=== PATIENT | male | born 1980 | race Caucasian/White ===

== ENCOUNTER 2016-12-21 02:21 | Emergency (ER) | payer MEDICAID ==
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
== END 2016-12-21 02:59 | disposition home or self-care (01) ==
PROC: 0HQ1XZZ Repair Face Skin, External Approach (ICD-10-PCS; principal; 2016-12-21)
DX: S01.81XA Laceration without foreign body of other part of head, initial encounter (principal); F17.200 Nicotine dependence, unspecified, uncomplicated; F10.120 Alcohol abuse with intoxication, uncomplicated; W18.39XA Other fall on same level, initial encounter; Y93.02 Activity, running

== ENCOUNTER 2017-07-01 14:13 | Emergency (ER) | payer MEDICAID ==
[2017-07-01 14:21] VITALS: RESP 16
[2017-07-01] MEDS ORDERED: THIAMINE HCL 500 MG in NS 100 ML IV ONE (14:23)
[2017-07-01] MEDS ORDERED: NS 1,000 ML IV ONE (14:23)
[2017-07-01] MEDS ORDERED: FOLIC ACID 1 MG TAB PO ONE (14:24)
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
[2017-07-01 15:45] LABS: ETHANOL SERUM 413 mg/dL (0-10)
[2017-07-01] MEDS ORDERED: CHLORDIAZEPOXIDE 25MG PREPK#6 BTL TAKEHOME ONE (19:14)
[2017-07-01 19:48] VITALS: BP 123/75; PULSE 89; O2SAT 93
== END 2017-07-01 20:00 | disposition home or self-care (01) ==
LOC: EDUNIT#
DX: F10.929 Alcohol use, unspecified with intoxication, unspecified (principal); F17.200 Nicotine dependence, unspecified, uncomplicated; E86.9 Volume depletion, unspecified
CPT/HCPCS: 82947-QW; 96365; G0480; J3411

== ENCOUNTER 2017-07-04 16:34 | Emergency (ER) | payer MEDICAID ==
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
[2017-07-04 16:50] VITALS: BP 150/95; PULSE 108; RESP 16; TEMP 99; O2SAT 91
== END 2017-07-04 16:59 | disposition home or self-care (01) ==
DX: F10.929 Alcohol use, unspecified with intoxication, unspecified (principal); F17.200 Nicotine dependence, unspecified, uncomplicated

== ENCOUNTER 2017-07-04 20:23 | Emergency (ER) | payer MEDICAID ==
[2017-07-04 20:31] VITALS: O2SAT 92
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
[2017-07-05 01:23] VITALS: BP 141/66; PULSE 74; RESP 165; TEMP 97.9
== END 2017-07-05 01:23 | disposition home or self-care (01) ==
DX: F10.129 Alcohol abuse with intoxication, unspecified (principal); F17.200 Nicotine dependence, unspecified, uncomplicated

== ENCOUNTER 2017-07-07 10:05 | Emergency (ER) | payer MEDICAID ==
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
[2017-07-07 12:37] VITALS: BP 128/67; PULSE 82; RESP 18; TEMP 98.6; O2SAT 95
== END 2017-07-07 12:52 | disposition home or self-care (01) ==
LOC: EDUNIT#
DX: F10.920 Alcohol use, unspecified with intoxication, uncomplicated (principal); F17.200 Nicotine dependence, unspecified, uncomplicated

== ENCOUNTER 2017-07-07 22:46 | Emergency (ER) | payer MEDICAID ==
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
[2017-07-07 22:56] VITALS: RESP 16
[2017-07-07] MEDS ORDERED: OLANZapine DISINTEGR 10 MG TAB PO ONE (23:14)
[2017-07-08 06:49] VITALS: BP 120/65; PULSE 80; TEMP 98.1; O2SAT 96
== END 2017-07-08 07:36 | disposition home or self-care (01) ==
LOC: EDUNIT#
DX: F10.921 Alcohol use, unspecified with intoxication delirium (principal); F17.200 Nicotine dependence, unspecified, uncomplicated

== ENCOUNTER 2017-07-08 11:47 | Emergency (ER) | payer MEDICAID ==
[2017-07-08 12:24] VITALS: BP 136/80; PULSE 100; RESP 18; TEMP 97.2; O2SAT 97
--- NOTE | 2017-07-08 12:30 | EDPHY ---
H & P Smoking Status: Current every day smoker Time Seen by Provider: 07/08/17 12:23 HPI/ROS: CHIEF COMPLAINT: Suspected alcohol use no complaints HISTORY OF PRESENT ILLNESS: 37-year-old male brought in by EMS not on are cold after he smelled alcohol and admits to drinking Listerine while he was at [facility]. No complaints of pain or discomfort. No chest pain. No back pain. No abdominal pain. REVIEW OF SYSTEMS: A ten point review of systems was performed and is negative with the exception of the items mentioned in the HPI PAST MEDICAL & SURGICAL HISTORY: No pertinent medical or surgical history SOCIAL HISTORY: homeless. Admits to drinking Listerine PHYSICAL EXAM (Prior to examination, patient consented to physical exam, hands were washed and my usual and customary physical exam procedures followed) 1) GENERAL: Well-developed, well-nourished, alert and oriented. Appears to be in no acute distress. Answering questions appropriately. Eating a meal. 2) HEAD: Normocephalic, atraumatic 3) HEENT: Pupils equal, round, reactive to light bilaterally. Sclera anicteric. No raccoon eyes no Mendez sign. 4) NECK: Full range of motion, no meningeal signs. 5) LUNGS: Clear auscultation bilaterally, no wheezes, no rhonchi, no retractions. 6) HEART: Regular rate and rhythm, no murmur, no heave, no gallop. 7) ABDOMEN: No guarding, no rebound, no focal tendernessn, 8) MUSCULOSKELETAL: No peripheral edema or discoloration. 9) BACK: no visual or palpable abnormality. 10) SKIN: No rash, no petechiae. 11) Psychiatric: Patient is oriented X 3, there is no agitation. DIFFERENTIAL DIAGNOSIS: In no particular order including but not limited to hypoglycemia, infectious process, electrolyte abnormality, head injury and intoxicants. (Salima Coyle) Constitutional: Initial Vital Signs Temperature (C) 36.2 C 07/08/17 12:14 Heart Rate 100 07/08/17 12:14 Respiratory Rate 18 07/08/17 12:14 Blood Pressure 136/80 H 07/08/17 12:14 O2 Sat (%) 97 07/08/17 12:14 O2 Delivery Mode Room Air Allergies/Adverse Reactions: MSG Allergy (Uncoded 07/07/17 22:53) Home Medications: Medication Instructions Recorded NK [No Known Home Meds] 10/01/16 MDM/Departure - MDM ED Course/Re-evaluation: At 12:29 p.m. the patient is eating a meal, he is talking with clear speech pattern, awake alert oriented to person place time events, stable steady gait. He is clinically sober. Have offered to [facility] which he declines. He will be discharged. Recommend he consider long-term alcohol sobriety (Salima Coyle) The patient was evaluated and managed by the physician certified nursing assistant instructor. I have reviewed this chart and I agree with the findings and plan of care as documented , as indicated by my signature. I am the secondary supervising physician. ( Otilia Brock) - Depart Disposition: Home, Routine, Self-Care Clinical Impression: Alcohol use Condition: Good Instructions: Abuse of Alcohol (ED) Referrals: [facility],. [Clinic] - As per Instructions
== END 2017-07-08 12:56 | disposition home or self-care (01) ==
LOC: EDUNIT#
DX: Z72.89 Other problems related to lifestyle (principal)

== ENCOUNTER 2017-07-09 04:51 | Emergency (ER) | payer MEDICAID ==
[2017-07-09] MEDS ORDERED: NS 1,000 ML IV ONE (05:02)
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
[2017-07-09] MEDS ORDERED: MIDAZOLAM 2 MG/2 ML VIAL ONE (05:03)
[2017-07-09] MEDS ORDERED: MIDAZOLAM 2 MG/2 ML VIAL IVP ONE ×2 (05:03→05:49)
[2017-07-09 05:30] LABS: % IMMATURE GRANULYOCYTES 0.5 % (0.0-1.1); ABSOLUTE IMMATURE GRANULOCYTES 0.03 10^3/uL (0.00-0.10); ADD DIFF? NO; ADD MORPH? NO; ADD SCAN? NO; ATYPICAL LYMPHOCYTE FLAG 60 (0-99); FRAGMENT RBC FLAG 0 (0-99); HEMATOCRIT 47.8 % (40.0-51.0); HEMOGLOBIN 16.4 g/dL (13.7-17.5); LEFT SHIFT FLG 0 (0-99); LIPEMIA HEMOLYSIS FLAG 90 (0-99); MEAN CELL HEMOGLOBIN 33.1 pg (27.9-34.1); MEAN CELL HEMOGLOBIN CONCENTR. 34.3 g/dL (32.4-36.7); MEAN CELL VOLUME 96.4 fL (81.5-99.8); MEAN PLATELET VOLUME 9.6 fL (8.7-11.7); PLATELET CLUMPS FLAG 10 (0-99); PLATELET COUNT 187 10^3/uL (150-400); RED BLOOD CELL COUNT 4.96 10^6/uL (4.40-6.38); RED CELL DISTRIBUTION WIDTH 14.3 % (11.5-15.2)
[2017-07-09 05:42] LABS: ANION GAP 16 mEq/L (8-16); CALCIUM 8.8 mg/dL (8.5-10.4); CARBON DIOXIDE 26 mEq/l (22-31); CHLORIDE 107 mEq/L (97-110); CREATININE 0.9 mg/dL (0.7-1.3); GLOMERULAR FILTRATION RATE > 60; GLUCOSE 80 mg/dL (70-100); POTASSIUM 4.6 mEq/L (3.5-5.2); SODIUM 149 mEq/L (134-144)
[2017-07-09 05:59] LABS: ETHANOL SERUM 467 mg/dL (0-10)
[2017-07-09 08:42] VITALS: BP 129/81; PULSE 83; RESP 16; TEMP 98.2; O2SAT 99
== END 2017-07-09 10:19 | disposition home or self-care (01) ==
LOC: EDUNIT#
DX: F10.920 Alcohol use, unspecified with intoxication, uncomplicated (principal); F17.200 Nicotine dependence, unspecified, uncomplicated
CPT/HCPCS: 80305; 96374; G0480; J2250

== ENCOUNTER 2017-07-09 12:38 | Emergency (ER) | payer MEDICAID ==
[2017-07-09 13:48] LABS: % IMMATURE GRANULYOCYTES 0.5 % (0.0-1.1); ABSOLUTE IMMATURE GRANULOCYTES 0.02 10^3/uL (0.00-0.10); ADD DIFF? NO; ADD MORPH? NO; ADD SCAN? NO; ATYPICAL LYMPHOCYTE FLAG 60 (0-99); FRAGMENT RBC FLAG 0 (0-99); LEFT SHIFT FLG 0 (0-99); LIPEMIA HEMOLYSIS FLAG 90 (0-99); MEAN CELL HEMOGLOBIN 33.3 pg (27.9-34.1); MEAN CELL HEMOGLOBIN CONCENTR. 34.1 g/dL (32.4-36.7); MEAN CELL VOLUME 97.6 fL (81.5-99.8); MEAN PLATELET VOLUME 9.8 fL (8.7-11.7); PLATELET CLUMPS FLAG 10 (0-99); PLATELET COUNT 164 10^3/uL (150-400); RED CELL DISTRIBUTION WIDTH 14.4 % (11.5-15.2)
[2017-07-09 14:02] LABS: ANION GAP 17 mEq/L (8-16); CALCIUM 7.9 mg/dL (8.5-10.4); CARBON DIOXIDE 20 mEq/l (22-31); CHLORIDE 105 mEq/L (97-110); CREATININE 0.8 mg/dL (0.7-1.3); ETHANOL SERUM 249 mg/dL (0-10); GLOMERULAR FILTRATION RATE > 60; GLUCOSE 264 mg/dL (70-100); POTASSIUM 3.9 mEq/L (3.5-5.2); SODIUM 142 mEq/L (134-144)
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
[2017-07-09 15:52] VITALS: O2SAT 94
[2017-07-09 23:37] VITALS: BP 123/72; PULSE 91; RESP 16; TEMP 99.1
== END 2017-07-10 00:50 | disposition home or self-care (01) ==
LOC: EDUNIT#
DX: F10.929 Alcohol use, unspecified with intoxication, unspecified (principal); F17.200 Nicotine dependence, unspecified, uncomplicated
CPT/HCPCS: 80305; G0480

== ENCOUNTER 2017-07-10 12:47 | Emergency (ER) | payer MEDICAID ==
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
[2017-07-10 16:13] VITALS: TEMP 98.6
[2017-07-10 16:22] VITALS: BP 121/79; PULSE 98; RESP 16; O2SAT 92
== END 2017-07-10 16:25 | disposition home or self-care (01) ==
LOC: EDUNIT#
DX: F10.120 Alcohol abuse with intoxication, uncomplicated (principal); F17.200 Nicotine dependence, unspecified, uncomplicated

== ENCOUNTER 2017-07-10 18:15 | Emergency (ER) | payer MEDICAID ==
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
[2017-07-10 18:43] VITALS: BP 142/97; PULSE 62; RESP 18; TEMP 97.5; O2SAT 97
== END 2017-07-10 18:20 | disposition home or self-care (01) ==
DX: F10.129 Alcohol abuse with intoxication, unspecified (principal); F17.200 Nicotine dependence, unspecified, uncomplicated
CPT/HCPCS: 80305; G0480

== ENCOUNTER 2017-12-13 16:00 | Emergency (ER) | payer MEDICAID ==
--- NOTE | 2017-12-13 16:09 | EDPHY ---
H & P Time Seen by Provider: 12/13/17 16:01 HPI/ROS: HPI Alcohol intoxication. 37-year-old male by ambulance. He is on an arc hold placed by aMry CARRENO. Patient found on the street heavily intoxicated, strong odor of alcohol on his breath, unable to walk, yelling at passerby's. No history of trauma. Patient denies any drug use. He admits to drinking at least a 5th of vodka today. No other complaints. ROS: Constitutional: No fever, no chills. As above. Eyes: No discharge. No changes in vision. ENT: No sore throat. No nasal congestion or rhinorrhea. Respiratory: No cough. No shortness of breath. Cardiac: No chest pain, no palpitations. Gastrointestinal: No abdominal pain, no vomiting, no diarrhea. Genitourinary: No hematuria. No dysuria or increased frequency with urination. Musculoskeletal: No back pain. No neck pain. No myalgias or arthralgias. Skin: No rashes. Neurological: No headache. No focal weakness or altered sensation. Past medical history: Alcohol abuse. Social history: Alcohol abuse, homeless, here by himself. Physical Exam: General Appearance: Intoxicated but awake. This patient is responding to questions appropriately albeit with slurred speech. This patient appears generally well-hydrated and well-nourished. Eyes: Pupils equal and round no pallor or injection. No lid edema, erythema or injection. ENT, Mouth: Mucous membranes are moist. The pharyngeal tissues are unremarkable. No edema or swelling. No asymmetry suggestive of abscess. No erythema or exudates. No tongue lacerations or abrasions. Respiratory: There are no retractions, lungs are clear to auscultation with good air movement bilaterally. Cardiovascular: Regular rate and rhythm. No murmur. Gastrointestinal: Abdomen is soft and nontender, no masses, bowel sounds normal. No focal tenderness at McBurney's point. No Perez sign. Neurological: Motor sensory function is grossly intact. Cranial nerves are normal. Skin: Warm and dry, no rashes. Musculoskeletal: Neck is supple and nontender. Extremities are symmetrical. All joints range without pain or impingement. Psychiatric: No agitation. No depression. Database: EKG: Imaging: Procedures: Emergency department course: Vital signs reviewed. Patient placed on a media monitor. Patient will be observed until properly sober for transfer to the [facility]. At 7:40 p.m., the patient is up and ambulatory to the bathroom under their own power and with a normal gait. The patient is responding to questions appropriately and in full sentences. The liabilities of alcohol abuse have been discussed with this patient. This patient has been medically cleared for discharge to the [facility] with Protalex or to home with a sober ride. Followup and return to emergency department precautions discussed. All of the patient's questions were answered. The patient was discharged from emergency department in good condition with Protalex. Differential Diagnosis: The differential diagnosis on this patient includes but is not limited to alcohol intoxication. Traumatic brain injury, other significant traumatic injury, intentional overdose unlikely. This represents a partial list of diagnoses considered. These considerations are based on history, physical exam , past history, reassessment and diagnostic testing. Smoking Status: Current every day smoker Constitutional: Initial Vital Signs Temperature (C) 36.7 C 12/13/17 16:00 Heart Rate 97 12/13/17 16:00 Respiratory Rate 16 12/13/17 16:00 Blood Pressure 106/67 12/13/17 16:00 O2 Sat (%) 93 12/13/17 16:00 O2 Delivery Mode Room Air Allergies/Adverse Reactions: MSG Allergy (Uncoded 07/09/17 12:45) Home Medications: Medication Instructions Recorded NK [No Known Home Meds] 10/01/16 Departure - Departure Disposition: Home, Routine, Self-Care Clinical Impression: Alcohol intoxication Condition: Good Instructions: Abuse of Alcohol (ED) Additional Instructions: Read and follow provided instructions. Follow-up with your primary care physician in 1-2 days for re-evaluation and discussion of detox options. Do not drink alcohol. Return to the emergency department for worsening symptoms or other serious concerns. Referrals: Patient,NotPresent [Unknown] - As per Instructions [facility] 24 Hours [Outside] - As per Instructions
[2017-12-13 17:17] VITALS: TEMP 98.1
[2017-12-13 18:01] VITALS: O2SAT 95
[2017-12-13 20:58] VITALS: BP 118/67; PULSE 105; RESP 20
== END 2017-12-13 20:58 | disposition home or self-care (01) ==
LOC: EDUNIT#
DX: F10.129 Alcohol abuse with intoxication, unspecified (principal); F17.200 Nicotine dependence, unspecified, uncomplicated

== ENCOUNTER 2017-12-21 15:28 | Emergency (ER) | payer MEDICAID ==
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
[2017-12-21 19:18] VITALS: TEMP 97.5
[2017-12-21] MEDS ORDERED: CHLORDIAZEPOXIDE 25MG PREPK#6 BTL TAKEHOME ONE (19:23)
[2017-12-21 19:32] VITALS: BP 133/74; PULSE 88; RESP 16; O2SAT 96
== END 2017-12-21 22:25 | disposition home or self-care (01) ==
LOC: EDUNIT#
DX: F10.920 Alcohol use, unspecified with intoxication, uncomplicated (principal); F17.200 Nicotine dependence, unspecified, uncomplicated

== ENCOUNTER 2017-12-28 03:07 | Emergency (ER) | payer MEDICAID ==
[2017-12-28] MEDS ORDERED: CHLORDIAZEPOXIDE 25MG PREPK#6 BTL TAKEHOME ONE (03:12)
[2017-12-28 03:13] VITALS: RESP 18
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
[2017-12-28 05:28] VITALS: BP 133/98; PULSE 102; TEMP 98.2; O2SAT 95
== END 2017-12-28 05:27 | disposition home or self-care (01) ==
LOC: EDUNIT#
DX: F10.129 Alcohol abuse with intoxication, unspecified (principal); F17.200 Nicotine dependence, unspecified, uncomplicated

== ENCOUNTER 2017-12-30 13:58 | Emergency (ER) | payer MEDICAID ==
[2017-12-30 14:08] VITALS: TEMP 98.2
--- NOTE | 2017-12-30 14:21 | EDPHY ---
H & P Smoking Status: Current every day smoker Time Seen by Provider: 12/30/17 14:03 HPI/ROS: CHIEF COMPLAINT: M1 hold HISTORY OF PRESENT ILLNESS: 37-year-old male prior to the emergency department by [place] [employer] police officer on an M1 hold. Patient admits to drinking alcohol today. Patient has had frequent visits to the emergency department with alcohol intoxication. Denies any other substance abuse. He denies chest pain or difficulty breathing. Denies abdominal pain. Denies headache. Denies any reported trauma. Denies injuries to upper or lower extremities. REVIEW OF SYSTEMS: Constitutional: No fever, no chills. Eyes: No double or blurry vision. ENT: No sore throat. Respiratory: No cough, no shortness of breath. Cardiac: No chest pain. Gastrointestinal: No abdominal pain, vomiting or diarrhea. Genitourinary: No dysuria. Musculoskeletal: No neck or back pain. Skin: No rashes. Neurological: No headache. (Magalys Ogden) Past Medical/Surgical History: Substance abuse, anxiety, depression (Magalys Ogden) Social History: Homeless (Magalys Ogden) Physical Exam: General Appearance: Alert, no distress. Visible signs of trauma to his head. He smells strongly of alcohol. Eyes: Pupils equal and round. Extraocular motions are all intact. ENT: Mouth: Mucous membranes moist. Respiratory: No wheezing, rhonchi, or rales, lungs are clear to auscultation. Cardiovascular: Regular rate and rhythm. Gastrointestinal: Abdomen is soft and nontender, no masses, no rebound or guarding, bowel sounds normal. Neurological: Uncooperative, cannot determine. Skin: Warm and dry, no rashes. Musculoskeletal: Nontender to palpate along the cervical, thoracic or lumbar spine. Neck is supple. Extremities: Full range of motion and no peripheral edema. Psychiatric: no agitation. (Magalys Ogden) Constitutional: Initial Vital Signs Temperature (C) 36.8 C 12/30/17 14:03 Heart Rate 86 12/30/17 14:03 Respiratory Rate 16 12/30/17 14:03 Blood Pressure 124/90 H 12/30/17 14:03 O2 Sat (%) 97 12/30/17 14:03 O2 Delivery Mode Room Air Allergies/Adverse Reactions: MSG Allergy (Uncoded 12/28/17 03:13) Home Medications: Medication Instructions Recorded NK [No Known Home Meds] 10/01/16 Medical Decision Making Other Provider: PHYSICIAN DOCUMENTATION: The patient was evaluated and managed by the Physician [employer] Facilitator and myself. I have reviewed the chart and agree with the findings and plan of care as documented. In addition, I examined the patient myself. History confirmed as alcohol ingestion. Physical findings as follows: Mumbling, slurring his speech. Ethanol 322, plan for serial exams. 2021: Patient re-evaluated and is alert awake and has fluent speech. He is ambulatory without ataxia and has no medical complaints. Says he was drinking alcohol and denies any homicidal or suicidal ideation and currently is not delusional or psychotic. He is offered transfer to detox but is stable for discharge to the street if he wishes. At this time I will terminate the mental health hold as he does not appear to be a danger to himself or danger to others or gravely disabled. I am the secondary supervising physician. (Balbir Saunders) - Data Points Laboratory Results: Laboratory Results 12/30/17 14:40 12/30/17 14:40 12/30/17 12/30/17 12/30/17 14:40 14:40 14:30 WBC 5.88 10^3/uL 10^3/uL (3.80-9.50) RBC 4.42 10^6/uL 10^6/uL (4.40-6.38) Hgb 14.8 g/dL g/dL (13.7-17.5) Hct 42.6 % % (40.0-51.0) MCV 96.4 fL fL (81.5-99.8) MCH 33.5 pg pg (27.9-34.1) MCHC 34.7 g/dL g/dL (32.4-36.7) RDW 13.8 % % (11.5-15.2) Plt Count 255 10^3/uL 10^3/uL (150-400) MPV 9.1 fL fL (8.7-11.7) Neut % (Auto) 64.3 % % (39.3-74.2) Lymph % (Auto) 23.6 % % (15.0-45.0) Leon % (Auto) 10.0 % % (4.5-13.0) Eos % (Auto) 0.9 % % (0.6-7.6) Baso % (Auto) 1.0 % % (0.3-1.7) Nucleat RBC Rel Count 0.0 % % (0.0-0.2) Absolute Neuts (auto) 3.78 10^3/uL 10^3/uL (1.70-6.50) Absolute Lymphs (auto) 1.39 10^3/uL 10^3/uL (1.00-3.00) Absolute Monos (auto) 0.59 10^3/uL 10^3/uL (0.30-0.80) Absolute Eos (auto) 0.05 10^3/uL 10^3/uL (0.03-0.40) Absolute Basos (auto) 0.06 10^3/uL 10^3/uL (0.02-0.10) Absolute Nucleated RBC 0.00 10^3/uL 10^3/uL (0-0.01) Immature Gran % 0.2 % % (0.0-1.1) Immature Gran # 0.01 10^3/uL 10^3/uL (0.00-0.10) Sodium 144 mEq/L mEq/L (135-145) Potassium 4.5 mEq/L mEq/L (3.5-5.2) Chloride 110 mEq/L mEq/L (97-110) Carbon Dioxide 22 mEq/l mEq/l (22-31) Anion Gap 12 mEq/L mEq/L (8-16) BUN 8 mg/dL mg/dL (7-23) Creatinine 0.7 mg/dL mg/dL (0.7-1.3) Estimated GFR > 60 Glucose 91 mg/dL mg/dL (70-100) Calcium 8.6 mg/dL mg/dL (8.5-10.4) TSH 0.911 uIU/mL uIU/mL (0.465-4.680) Urine Opiates Screen NEGATIVE (NEGATIVE) Urine Barbiturates NEGATIVE (NEGATIVE) Ur Phencyclidine Scrn NEGATIVE (NEGATIVE) Ur Amphetamine Screen NEGATIVE (NEGATIVE) U Benzodiazepines Scrn NEGATIVE (NEGATIVE) Urine Cocaine Screen NEGATIVE (NEGATIVE) U Marijuana (THC) Screen NON-NEGATIVE H (NEGATIVE) Ethyl Alcohol 322 mg/dL H mg/dL (0-10) Departure - Departure Disposition: Home, Routine, Self-Care Clinical Impression: Alcohol intoxication Qualifiers: Complication of substance-induced condition: uncomplicated Qualified Code(s): F10.920 - Alcohol use, unspecified with intoxication, uncomplicated Condition: Good Instructions: Alcohol Intoxication (ED) Referrals: [facility],. [Clinic] - As per Instructions
[2017-12-30 14:49] LABS: PLATELET COUNT 255 10^3/uL (150-400)
--- NOTE | 2017-12-30 15:03 | ASMTLACE ---
LACE Length of stay for Answers: Less than 1 day current admission Acuity / Level of Answers: No Care: Did the patient have an inpatient admission? # of Emergency department Answers: 12+ visits in the last 6 months Social determinants Answers: History of substance abuse (ETOH, street drugs, prescription drugs, etc.) Homelessness (street, [facility]) Lack of community resources and/or lack of social support (no pcp, lives alone, transportation, pedro luis d) Score: 16 Date Signed: 12/30/2017 03:02 PM Electronically Signed By:Obie Petersen LCSW
[2017-12-30 20:41] VITALS: BP 132/68; PULSE 72; RESP 18; O2SAT 94
== END 2017-12-30 20:40 | disposition home or self-care (01) ==
DX: F10.920 Alcohol use, unspecified with intoxication, uncomplicated (principal); F17.200 Nicotine dependence, unspecified, uncomplicated
CPT/HCPCS: 80305; G0480

== ENCOUNTER 2018-01-15 10:11 | Emergency (ER) | payer MEDICAID ==
[2018-01-15 10:23] VITALS: TEMP 97.5; O2SAT 93
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
[2018-01-15 14:13] VITALS: BP 120/84; PULSE 96; RESP 18
== END 2018-01-15 14:33 | disposition home or self-care (01) ==
LOC: EDUNIT#
PROC: 0HQ1XZZ Repair Face Skin, External Approach (ICD-10-PCS; principal; 2018-01-15)
DX: S01.81XA Laceration without foreign body of other part of head, initial encounter (principal); F10.929 Alcohol use, unspecified with intoxication, unspecified; F17.200 Nicotine dependence, unspecified, uncomplicated; W01.198A Fall on same level from slipping, tripping and stumbling with subsequent striking against other object, initial encounter

== ENCOUNTER 2018-01-15 22:57 | Emergency (ER) | payer MEDICAID ==
[2018-01-15] MEDS ORDERED: chlordiazePOXIDE 25 MG CAP PO ONE (23:16)
[2018-01-15] MEDS ORDERED: CHLORDIAZEPOXIDE 25MG PREPK#6 BTL TAKEHOME ONE (23:16)
[2018-01-15] MEDS ORDERED: ONDANSETRON DISINTEGRATING 4 MG TAB PO ONE (23:17)
[2018-01-15] MEDS ORDERED: IBUPROFEN 200 MG TAB PO ONE (23:17)
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
[2018-01-15 23:52] VITALS: BP 132/96; PULSE 100; RESP 16; TEMP 96.8; O2SAT 98
== END 2018-01-15 23:51 | disposition home or self-care (01) ==
DX: F10.230 Alcohol dependence with withdrawal, uncomplicated (principal); F17.200 Nicotine dependence, unspecified, uncomplicated

== ENCOUNTER 2018-03-18 08:49 | Emergency (ER) | payer MEDICAID ==
[2018-03-18] MEDS ORDERED: LORazepam 2 MG/ML INJ IM ONE (09:12)
[2018-03-18] MEDS ORDERED: HALOPERIDOL LACT 5 MG/ML INJ IM ONE (09:13)
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
[2018-03-18 10:10] LABS: PLATELET COUNT 231 10^3/uL (150-400)
[2018-03-18 21:09] VITALS: BP 102/55
== END 2018-03-18 21:04 | disposition home or self-care (01) ==
LOC: EDUNIT#
DX: S50.812A Abrasion of left forearm, initial encounter (principal); F10.921 Alcohol use, unspecified with intoxication delirium; X83.8XXA Intentional self-harm by other specified means, initial encounter; F17.200 Nicotine dependence, unspecified, uncomplicated
CPT/HCPCS: 80305; G0480; J1630; J2060

== ENCOUNTER 2018-03-19 16:58 | Emergency (ER) | payer MEDICAID ==
--- NOTE | 2018-03-19 17:08 | EDPHY ---
H & P Time Seen by Provider: 03/19/18 17:04 HPI/ROS: HPI: This is a 38-year-old male who presents with Chief Complaint: Alcohol intoxication and medical clearance Location:lower back Quality: pain Duration: injury Signs and Symptoms: No radiation, no weakness, no bowel or bladder difficulties , no fever, no skin changes Timing: Constant Severity: Mild Context: Patient presents in police custody after they were called to the [address] mall and found him lying in the bushes. He appeared to be intoxicated and had peppermint mouthwash in his pocket. It is approximately 1/4 gone. Patient was seen here yesterday morning by myself on M1 hold for alcohol intoxication and suicide attempt by throwing himself off the 2nd railing at the [address]. Once patient became more sober, he was evaluated by mental health who deemed him not a suicide risk. He was discharged this morning. He admits to me that he found some alcohol consisting of 2-40 malt liquor beverages and then also drank some mouthwash. He denies suicidal ideation/ homicidal ideation/hallucinations. Patient reports that his lower back hurts. Please state that they found him lying on his back in the bushes. He was ambulatory with assistance on scene. Yesterday while patient was in the emergency room, he sustained a superficial abrasion to his lower back area. Modifying Factors: None Comment: ROS: Difficult due to intoxication MEDICAL/SURGICAL/SOCIAL HISTORY: Medical history: Alcohol abuse Surgical history: Denies Social history: Homeless. Family history noncontributory. CONSTITUTIONAL: Untidy, clearly intoxicated middle-aged white male, awake and alert, no obvious distress HEENT: Atraumatic and normocephalic, PERRL, EOMI. Nares patent; no rhinorrhea; no nasal mucosal edema. Tympanic membranes clear. Oropharynx clear, no exudate and moist pink mucosa. Airway patent. No lymphadenopathy. No meningismus. Cardiovascular: Normal S1/S2, regular rate, regular rhythm, without murmur rub or gallop. PULMONARY/CHEST: Symmetrical and nontender. Clear to auscultation bilaterally. Good air movement. No accessory muscle usage. ABDOMEN: Soft, nondistended, nontender, no rebound, no guarding, no peritoneal signs, no masses or organomegaly. No CVAT. EXTREMITIES: 2/2 pulses, strength 5/5, no deformities, no clubbing, no cyanosis or edema. NEUROLOGICAL: no focal neuro deficits. GCS 15. Speech is somewhat slurred. Able to answer my questions and follows simple commands. SKIN: Warm and dry, no erythema. no rash. Good capillary refill. PSYCH: Poor eye contact, no flight of ideas, someone organized thought process , poor insight and judgment, no auditory and visual command hallucinations, no suicidal ideation with a plan, no homicidal ideation, not paranoid Source: Patient, Police, RN/MD, Old records Exam Limitations: Intoxication - Personal History Tetanus Vaccine Date: 2009 - Medical/Surgical History Hx Asthma: No Hx Chronic Respiratory Disease: No Hx Diabetes: No Hx Cardiac Disease: No Hx Renal Disease: No Hx Cirrhosis: No Hx Alcoholism: Yes Hx HIV/AIDS: No Hx Splenectomy or Spleen Trauma: No - Social History Smoking Status: Current every day smoker Constitutional: Initial Vital Signs Temperature (C) 36.9 C 03/19/18 17:06 Heart Rate 82 03/19/18 17:06 Respiratory Rate 16 03/19/18 17:06 Blood Pressure 121/83 H 03/19/18 17:06 O2 Sat (%) 92 03/19/18 17:06 O2 Delivery Mode Room Air Allergies/Adverse Reactions: MSG Allergy (Uncoded 01/15/18 23:02) Home Medications: Medication Instructions Recorded NK [No Known Home Meds] 10/01/16 Medical Decision Making - Diagnostics Imaging Results: Imaging Impressions Lumbar Spine X-Ray 03/19/18 17:08 Impression: Normal. ED Course/Re-evaluation: Patient is clearly intoxicated by alcohol. No signs of alcohol withdrawal seizures/delirium/coma. Patient does not meet M1 hold or detainer criteria Lumbosacral x-ray ordered. No signs of neurovascular compromise/tenting of skin /compartment syndrome/extremities and joints examined above and below area of concern and are neurovascularly intact. No indications for emergent MRI. Lumbosacral x-ray my read via PACs shows no fracture/dislocation. Mild narrowing and degenerative changes at L5-S1. Patient is medically cleared to be discharged to custodial. At discharge patient able to ambulate without any assistance. No ataxia present. This patient was seen under the supervision of my secondary supervising physician. I evaluated care for this patient independently. Discussed this patient with Dr. Vaca who did not see the patient. Differential Diagnosis: Altered mental status including but not limited to hypoglycemia, infectious process, electrolyte abnormality, head injury and intoxicants. Departure - Departure Disposition: Law Enforcement/Court/[facility] Clinical Impression: Alcohol intoxication Qualifiers: Complication of substance-induced condition: uncomplicated Qualified Code(s): F10.920 - Alcohol use, unspecified with intoxication, uncomplicated Abrasion of lower back Qualifiers: Encounter type: initial encounter Qualified Code(s): S30.810A - Abrasion of lower back and pelvis, initial encounter Condition: Good Instructions: Alcohol Intoxication (ED), Abuse of Alcohol (ED) Additional Instructions: Please slowly refrain from drinking alcohol excessively. Medically Cleared for patient to be discharged to custodial. See [facility] for follow-up instructions and prescriptions. Referrals: [facility],. [Clinic] - As per Instructions [facility] [Outside] - As per Instructions
[2018-03-19 17:42] VITALS: BP 114/87
== END 2018-03-19 17:42 ==
LOC: EDUNIT#
DX: F10.920 Alcohol use, unspecified with intoxication, uncomplicated (principal); S30.810D Abrasion of lower back and pelvis, subsequent encounter; F17.200 Nicotine dependence, unspecified, uncomplicated; X83.8XXD Intentional self-harm by other specified means, subsequent encounter

== ENCOUNTER 2018-04-07 14:50 | Emergency (ER) | payer MEDICAID ==
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
[2018-04-07] MEDS ORDERED: CHLORDIAZEPOXIDE 25MG PREPK#6 BTL TAKEHOME ONE (16:05)
[2018-04-07 16:33] VITALS: BP 102/57
== END 2018-04-07 16:43 | disposition home or self-care (01) ==
LOC: EDUNIT#
DX: S00.01XA Abrasion of scalp, initial encounter (principal); F10.920 Alcohol use, unspecified with intoxication, uncomplicated; F17.200 Nicotine dependence, unspecified, uncomplicated; V18.0XXA Pedal cycle driver injured in noncollision transport accident in nontraffic accident, initial encounter; Y92.410 Unspecified street and highway as the place of occurrence of the external cause; Y99.8 Other external cause status; Y93.55 Activity, bike riding

== ENCOUNTER 2018-04-08 20:38 | Emergency (ER) | payer MEDICAID ==
--- NOTE | 2018-04-08 20:46 | EDPHY ---
H & P Time Seen by Provider: 04/08/18 20:45 HPI/ROS: CHIEF COMPLAINT: Alcohol intoxication, altered mental status HISTORY OF PRESENT ILLNESS: 38-year-old male presents to the emergency department by ambulance with alcohol intoxication and altered mental status. The patient admits to drinking alcohol. The patient was at a local grocery store was apparently throwing things and was not cooperative. Police came to detained the patient, however he was becoming increasingly aggressive. He required restraining and take down. In the process he sustained abrasion to his left forehead. Patient states he has no complaints. He denies any other substance abuse. He denies a headache. Denies chest pain or difficulty breathing. Denies abdominal pain. REVIEW OF SYSTEMS: Constitutional: No fever, no chills. Eyes: No double or blurry vision. ENT: No sore throat. Respiratory: No cough, no shortness of breath. Cardiac: No chest pain. Gastrointestinal: No abdominal pain, vomiting or diarrhea. Genitourinary: No dysuria. Musculoskeletal: No neck or back pain. Skin: No rashes. Neurological: No headache. Past Medical/Surgical History: Alcoholism, anxiety, depression Social History: Single, homeless Smoking Status: Current every day smoker Physical Exam: General Appearance: Alert, smells strongly of alcohol. Superficial abrasion to the left anterior aspect of the forehead. No suturable lacerations noted. Eyes: Pupils equal and round. Extraocular motions are all intact. ENT: Mouth: Mucous membranes moist. Respiratory: No wheezing, rhonchi, or rales, lungs are clear to auscultation. Cardiovascular: Regular rate and rhythm. Gastrointestinal: Abdomen is soft and nontender, no masses, no rebound or guarding, bowel sounds normal. Neurological: Uncooperative, cannot determine. Skin: Superficial abrasion to the left anterior aspect of the forehead. Warm and dry, no rashes. Musculoskeletal: Nontender to palpate along the cervical, thoracic or lumbar spine. Neck is supple. Extremities: Full range of motion and no peripheral edema. Psychiatric: no agitation. Constitutional: Initial Vital Signs Temperature (C) 36.7 C 04/08/18 20:30 Heart Rate 78 04/08/18 20:30 Respiratory Rate 18 04/08/18 20:30 Blood Pressure 119/79 04/08/18 20:30 O2 Sat (%) 97 04/08/18 20:30 O2 Delivery Mode Room Air Allergies/Adverse Reactions: MSG Allergy (Uncoded 04/07/18 14:55) Home Medications: Medication Instructions Recorded NK [No Known Home Meds] 10/01/16 Medical Decision Making ED Course/Re-evaluation: 38-year-old male presents to the emergency department with alcohol intoxication and medical clearance for [facility]. The patient while he was being detained by the police sustained an abrasion to his forehead. No suturable lacerations noted. The patient currently has no complaints. He is requiring restraints since he was combative. He had a weak breath of 0.134. Differential Diagnosis: Altered mental status including but not limited to hypoglycemia, infectious process, electrolyte abnormality, head injury and intoxicants. Departure - Departure Disposition: Law Enforcement/Court/Correction Clinical Impression: Alcohol intoxication Qualifiers: Complication of substance-induced condition: uncomplicated Qualified Code(s): F10.920 - Alcohol use, unspecified with intoxication, uncomplicated Altered mental status Qualifiers: Altered mental status type: unspecified Qualified Code(s): R41.82 - Altered mental status, unspecified Instructions: Alcohol Intoxication (ED), Abrasion (ED) Additional Instructions: Abrasion to forehead does not require sutures. You should not drink alcohol in excess. Referrals: [facility] [Outside] - As per Instructions
[2018-04-08 21:01] VITALS: BP 118/66
== END 2018-04-08 20:59 ==
LOC: EDUNIT#
DX: R41.82 Altered mental status, unspecified (principal); F10.920 Alcohol use, unspecified with intoxication, uncomplicated; F17.200 Nicotine dependence, unspecified, uncomplicated

== ENCOUNTER 2019-04-06 07:41 | Emergency (ER) | payer MEDICAID | END 2019-04-06 09:23 | disposition home or self-care (01) ==

== ENCOUNTER 2019-04-06 14:40 | Emergency (ER) | payer MEDICAID | END 2019-04-06 17:43 | disposition home or self-care (01) ==

== ENCOUNTER 2019-04-06 20:56 | Emergency (ER) | payer MEDICAID | END 2019-04-06 23:15 | disposition home or self-care (01) ==

== ENCOUNTER 2019-04-29 | Emergency (ER) | payer MEDICAID | END 2019-04-29 04:54 | disposition home or self-care (01) ==

== ENCOUNTER 2019-04-29 07:43 | Emergency (ER) | payer MEDICAID | END 2019-04-29 12:55 | disposition home or self-care (01) ==

== ENCOUNTER 2019-04-29 15:25 | Emergency (ER) | payer MEDICAID | END 2019-04-29 18:36 | disposition home or self-care (01) ==

== ENCOUNTER 2019-05-01 04:07 | Emergency (ER) | payer MEDICAID | END 2019-05-01 04:55 | disposition home or self-care (01) ==